=== PATIENT | female | born 1960 | race Caucasian/White ===

== ENCOUNTER → 2016-07-20 | Outpatient (REF) | payer BC ==
[2016-07-20 12:58] LABS: LUTEINIZING HORMONE 51.2 mIU/mL
[2016-07-20 12:59] LABS: FOLLICLE STIMULATING HORMONE 113.6 mIU/mL
== END ==
LOC: M LAB REF 12:19
PROVIDERS: ATTEND Nurse Practitioner Family
DX: N91.2 Amenorrhea, unspecified (principal)

== ENCOUNTER 2016-10-09 14:36 | Emergency (ER) | payer BC ==
[~2016-10-09] VITALS: Ht 162.6 cm; Wt 65.4 kg
[2016-10-09] MEDS ORDERED: BYST5TAB2 PO (14:48)
[2016-10-09] MEDS ORDERED: CIPR-249 PO (16:00)
[2016-10-09] MEDS ORDERED: PYRI1TAB5 PO (16:00)
[2016-10-09 16:09] VITALS: BP 126/93
== END 2016-10-09 16:17 | disposition home or self-care (01) ==
LOC: M ED 14:36
DX: N39.0 Urinary tract infection, site not specified (principal)

== ENCOUNTER → 2019-01-07 | Outpatient (CLI) | payer BC ==
[~2019-01-07] MED LIST: BYST5TAB2 PO; CIPR-249 PO; PYRI1TAB5 PO
--- NOTE | 2019-01-07 14:24 | REP ---
Left foot four views: There is an intra-articular fracture at the base of the second digit proximal phalange. There is no dislocation. Mineralization and joint spaces are otherwise unremarkable. There are no foreign bodies. No calcifications. Impression: Intra-articular fracture at the base of the second digit proximal phalange Electronically Signed by Ignacio Milian MD 01/07/2019 02:15 P
== END ==
LOC: M WUC 11:36
PROVIDERS: ATTEND Nurse Practitioner Family
DX: M79.672 Pain in left foot (principal)

== ENCOUNTER → 2019-03-23 | Outpatient (REF) | payer BC | LOC: M LAB REF 13:28 | PROVIDERS: ATTEND Nurse Practitioner Family | DX: Z11.59 Encounter for screening for other viral diseases (principal) ==

== ENCOUNTER → 2019-06-29 | Outpatient (REF) | payer BC ==
[2019-07-02 00:07] LABS: Lyme Disease IgG Ab 18 kDa Ban Present (.); Lyme Disease IgG Ab 23 kDa Ban Present (.); Lyme Disease IgG Ab 28 kDa Ban Absent (.); Lyme Disease IgG Ab 30 kDa Ban Absent (.); Lyme Disease IgG Ab 39 kDa Ban Absent (.); Lyme Disease IgG Ab 41 kDa Ban Absent (.); Lyme Disease IgG Ab 45 kDa Ban Absent (.); Lyme Disease IgG Ab 58 kDa Ban Absent (.); Lyme Disease IgG Ab 66 kDa Ban Absent (.); Lyme Disease IgG Ab 93 kDa Ban Present (.); Lyme Disease IgG West Blot Int Negative (.); Lyme Disease IgG/IgM Antibodie <0.91 ISR (0.00-0.90); Lyme Disease IgM Ab 23 kDa Ban Absent (.); Lyme Disease IgM Ab 39 kDa Ban Absent (.); Lyme Disease IgM Ab 41 kDa Ban Absent (.); Lyme Disease IgM Ab Quantitati 1.17 index (0.00-0.79); Lyme Disease IgM West Blot Int Negative (.)
== END ==
LOC: M LAB REF 16:44
PROVIDERS: ATTEND Registered Nurse
DX: M13.0 Polyarthritis, unspecified (principal)

== ENCOUNTER → 2020-05-03 | Outpatient (REF) | payer BC ==
[2020-05-03 14:23] LABS: BASO % 0.5 % (0.0-1.0); EOS % 0.7 % (0.0-3.0); HEMOGLOBIN 12.7 g/dl (12.0-15.5); LYMPH # 1.7 10^3/uL (1.5-5.0); LYMPH % 40.6 % (24.0-44.0); MEAN CORPUSCULAR HEMOGLOBIN 29.6 pg (27.0-33.0); MEAN CORPUSCULAR HGB CONC 31.8 g/dl (32.0-36.5); MEAN CORPUSCULAR VOLUME 93.2 fl (80.0-96.0); MONO # 0.3 10^3/uL (0.0-0.8); MONO % 6.2 % (0.0-5.0); NEUTROPHILS # 2.2 10^3/uL (1.5-8.5); NEUTROPHILS % 51.5 % (36.0-66.0); PLATELET COUNT, AUTOMATED 261 10^3/uL (150-450); RED BLOOD COUNT 4.29 10^6/uL (4.00-5.40); WHITE BLOOD COUNT 4.2 10^3/uL (4.0-10.0)
[2020-05-03 15:05] LABS: ERYTHROCYTE SEDIMENTATION RATE 5 mm/hr (0-30)
[2020-05-03 15:24] LABS: C REACTIVE PROTEIN QUANTITATIV < 0.30 MG/DL (0.00-0.30); CPK CREATINE PHOSPHOKINASE 102 U/L (26-192); FREE T4 0.77 NG/DL (0.76-1.46)
[2020-05-03 15:27] LABS: VITAMIN B12 LEVEL 336 PG/ML
[2020-05-03 15:30] LABS: FOLATE 9.7 NG/ML
[2020-05-05 14:12] LABS: Lyme Disease IgG Ab 18 kDa Ban Absent (.); Lyme Disease IgG Ab 23 kDa Ban Present (.); Lyme Disease IgG Ab 28 kDa Ban Absent (.); Lyme Disease IgG Ab 30 kDa Ban Absent (.); Lyme Disease IgG Ab 39 kDa Ban Absent (.); Lyme Disease IgG Ab 41 kDa Ban Absent (.); Lyme Disease IgG Ab 45 kDa Ban Absent (.); Lyme Disease IgG Ab 58 kDa Ban Absent (.); Lyme Disease IgG Ab 66 kDa Ban Absent (.); Lyme Disease IgG Ab 93 kDa Ban Present (.); Lyme Disease IgG West Blot Int Negative (.); Lyme Disease IgG/IgM Antibodie <0.91 ISR (0.00-0.90); Lyme Disease IgM Ab 23 kDa Ban Absent (.); Lyme Disease IgM Ab 39 kDa Ban Absent (.); Lyme Disease IgM Ab 41 kDa Ban Absent (.); Lyme Disease IgM Ab Quantitati 1.22 index (0.00-0.79); Lyme Disease IgM West Blot Int Negative (.)
== END ==
LOC: M SFHCPLAZ 10:51
PROVIDERS: ATTEND Internal Medicine Infectious Disease
DX: A69.20 Lyme disease, unspecified (principal); R53.83 Other fatigue

== ENCOUNTER → 2020-06-05 | Outpatient (CLI) | payer BC ==
[~2020-06-05] MED LIST changes: +ESTR62CR VG; +LISI10TA22 PO
== END ==
LOC: M LABSMTC 10:46
PROVIDERS: ATTEND Anesthesiology
DX: Z01.812 Encounter for preprocedural laboratory examination (principal); Z20.822 Contact with and (suspected) exposure to COVID-19

== ENCOUNTER 2020-06-10 10:12 | Day surgery (SDC) | payer BC ==
[~2020-06-10] VITALS: Ht 162.6 cm; Wt 59.4 kg
[~2020-06-10 10:12] MED LIST changes: +NS 1,000 ML IV ONE
[2020-06-10] MEDS ORDERED: propofoL 200 MG/20 ML VIAL As Ordered ONE ×3 (12:08→12:29)
[2020-06-10] MEDS ORDERED: LIDOCAINE 2% 100MG/5ML SDV (FOR ANES.) As Ordered ONE (12:08)
--- NOTE | 2020-06-10 12:28 | ROOR ---
Patient Name: Frances Severino Procedure Date: 06/10/2020 12:05 PM Date of : 1960 Age: 59 [facility]: [facility] Gender: Female Note Status: Finalized Procedure: Total Colonoscopy to Cecum Indications: Screening for colorectal malignant neoplasm Providers: Octavio Oleary MD Referring MD: Isma Paige MD Requesting Provider: Medicines: Monitored Anesthesia Care Complications: No immediate complications. Procedure: Pre-Anesthesia Assessment: - The heart rate, respiratory rate, oxygen saturations, blood pressure, adequacy of pulmonary ventilation, and response to care were monitored throughout the procedure. The Colonoscope was introduced through the anus and advanced to the cecum, identified by appendiceal orifice and ileocecal valve. The colonoscopy was performed without difficulty. The patient tolerated the procedure well. The quality of the bowel preparation was excellent. Findings: The perianal and digital rectal examinations were normal. Scattered small-mouthed diverticula were found in the recto-sigmoid colon, sigmoid colon and descending colon. The exam was otherwise without abnormality on direct and retroflexion views. Impression: - Diverticulosis in the recto-sigmoid colon, in the sigmoid colon and in the descending colon. - The examination was otherwise normal on direct and retroflexion views. - No specimens collected. - The exam was otherwise normal to the cecum. Recommendation: - Patient has a contact number available for emergencies. The signs and symptoms of potential delayed complications were discussed with the patient. Return to normal activities tomorrow. Written discharge instructions were provided to the patient. - High fiber diet. - Discharge patient to home. - Continue present medications. - Repeat colonoscopy in 10 years for screening purposes. - Return to referring physician. - The findings and recommendations were discussed with the patient. Procedure Code(s): --- Professional --- 05420, Colonoscopy, flexible; diagnostic, including collection of specimen(s) by brushing or washing, when performed (separate procedure) Diagnosis Code(s): --- Professional --- Z12.11, Encounter for screening for malignant neoplasm of colon K57.30, Diverticulosis of large intestine without perforation or abscess without bleeding CPT copyright 2019 [employer]. All rights reserved. The codes documented in this report are preliminary and upon railways assistant review may be revised to meet current compliance requirements. Octavio Oleary MD Octavio Oleary MD 06/10/2020 12:28:21 PM Electronically signed by Octavio Oleary MD Number of Addenda: 0 Note Initiated On: 06/10/2020 12:05 PM Estimated Blood Loss: Estimated blood loss: none.
[2020-06-10 12:50] VITALS: BP 128/87
== END 2020-06-10 13:01 | disposition home or self-care (01) ==
LOC: M OPP 10:12
PROVIDERS: ATTEND Internal Medicine Gastroenterology
DX: Z12.11 Encounter for screening for malignant neoplasm of colon (principal); K57.30 Diverticulosis of large intestine without perforation or abscess without bleeding; I10 Essential (primary) hypertension; Z88.1 Allergy status to other antibiotic agents; Z91.018 Allergy to other foods; Z79.899 Other long term (current) drug therapy

== ENCOUNTER → 2022-02-08 | Outpatient (REF) | payer BC ==
[~2022-02-08] MED LIST changes: -NS 1,000 ML IV ONE
== END ==
LOC: M LABDRAWC 11:00
PROVIDERS: ATTEND Registered Nurse
DX: A69.20 Lyme disease, unspecified (principal)

== ENCOUNTER → 2022-10-12 | Outpatient (CLI) | payer BC | LOC: M WHC 08:21 → MERGE 08:21 | PROVIDERS: ATTEND Nurse Practitioner Family | DX: Z13.820 Encounter for screening for osteoporosis (principal); M81.0 Age-related osteoporosis without current pathological fracture ==

== ENCOUNTER → 2022-10-12 | Outpatient (CLI) | payer BC | LOC: M WHC 08:43 → MERGE 08:43 | PROVIDERS: ATTEND Internal Medicine | DX: Z12.31 Encounter for screening mammogram for malignant neoplasm of breast (principal) ==

== ENCOUNTER 2023-02-02 09:45 | Observation (INO) | payer BC ==
[~2023-02-02] VITALS: Ht 162.6 cm; Wt 59.2 kg
[2023-02-02] VITALS (16 sets, daily range): BP systolic 137–200; BP diastolic 83–122; TEMP 97.7–98.8; O2SAT 96–100
[2023-02-02] MEDS: ASPIRIN 81MG ENTERIC TABLET PO SCH (09:00)
[2023-02-02] MEDS: ATORVASTATIN 20 MG TAB PO SCH (09:00)
[~2023-02-02 09:45] MED LIST changes: +ASPIRIN 81MG ENTERIC TABLET PO SCH
[2023-02-02 10:53] LABS: BASO % 0.3 % (0.0-1.0); EOS # 0.1 10^3/uL (0.0-0.5); EOS % 1.5 % (0.0-3.0); HEMATOCRIT 41.7 % (36.0-47.0); LYMPH # 1.6 10^3/uL (1.5-5.0); LYMPH % 40.1 % (24.0-44.0); MEAN CORPUSCULAR HEMOGLOBIN 30.4 pg (27.0-33.0); MEAN CORPUSCULAR HGB CONC 33.6 g/dl (32.0-36.5); MEAN CORPUSCULAR VOLUME 90.7 fl (80.0-96.0); MONO # 0.3 10^3/uL (0.0-0.8); MONO % 6.7 % (2.0-8.0); NEUTROPHILS % 51.1 % (36.0-66.0); PLATELET COUNT, AUTOMATED 257 10^3/uL (150-450); WHITE BLOOD COUNT 3.9 10^3/uL (4.0-10.0)
[2023-02-02] MEDS ORDERED: MAG SULF 1GM/100ML (MAG RUN) 1 GM in IV 1 EA IV ONE (11:00)
[2023-02-02 11:06] LABS: INR 0.94; PROTHROMBIN TIME 12.3 SECONDS (12.5-14.5)
[2023-02-02 11:07] LABS: PARTIAL THROMBOPLASTIN TIME 29.4 SECONDS (24.8-34.2)
[2023-02-02 11:20] LABS: BLOOD UREA NITROGEN 13 MG/DL (9-23); CALCIUM LEVEL 9.2 MG/DL (8.3-10.6); CARBON DIOXIDE LEVEL 29 MMOL/L (20-31); CHLORIDE LEVEL 103 MMOL/L (98-107); CREATININE FOR GFR 0.77 MG/DL (0.55-1.30); GLOMERULAR FILTRATION RATE > 60.0 (>45); GLUCOSE, FASTING 120 MG/DL (74-106); MAGNESIUM LEVEL 2.1 MG/DL (1.8-2.4); POTASSIUM SERUM 4.2 MMOL/L (3.5-5.1); SODIUM LEVEL 140 MMOL/L (136-145)
[2023-02-02] MEDS ORDERED: MED REC IN PROGRESS XX SCH (12:10)
[2023-02-02] MEDS ORDERED: ISOVUE-370 76% 100ML VIAL As Ordered ONE (12:44)
[2023-02-02] MEDS ORDERED: HOME MED LIST COMPLETE! XX SCH (12:50)
[2023-02-02] MEDS ORDERED: MOM 30ML SUSPENSION UDC PO PRN (13:25)
[2023-02-02] MEDS ORDERED: MAALOX 30 ML SUSP *UDC PO PRN (13:25)
[2023-02-02 14:17] LABS: CHOLESTEROL LEVEL 207 MG/DL (<200); CHOLESTEROL RISK RATIO 2.63 (<5); HDL CHOLESTEROL 78.6 MG/DL (>40); LDL CHOLESTEROL 112.6 MG/DL (<100); NON-HDL-C 128.4 MG/DL; TOTAL 25(OH) VITAMIN D 23.7 NG/ML (20.0-100.0); TRIGLYCERIDES LEVEL 79 MG/DL (<150); VITAMIN B12 LEVEL 310 PG/ML (211-911)
[2023-02-02 14:56] LABS: HEMOGLOBIN A1c 4.9 % (4.0-6.0)
[2023-02-02] MEDS ORDERED: GLUCOSE 4GM CHEW TABLET PO PRN (16:05)
[2023-02-02] MEDS ORDERED: GLUCAGON INJ 1MG VIAL SC PRN (16:05)
[2023-02-02] MEDS ORDERED: DEXTROSE 50% 50ML SYRINGE IV PRN (16:05)
[2023-02-02] MEDS ORDERED: INSULIN LISPRO (NovoLOG) PER UNIT SC SCH ×2 (17:30→21:00)
[2023-02-02] MEDS ORDERED: ENOXAPARIN 40MG/0.4ML SYRINGE (J1650 PER 10MG) SC SCH (21:00)
[2023-02-03] MEDS: ACETAMINOPHEN TAB 650MG DOSE (2X325MG) PO PRN ×2 (02:59→13:02)
[2023-02-03 06:00] VITALS: BP 135/91; TEMP 97.5; O2SAT 95
[2023-02-03 07:57] VITALS: BP 139/97
[2023-02-03] MEDS: ATORVASTATIN 20 MG TAB PO SCH (08:00)
[2023-02-03] MEDS: ASPIRIN 81MG ENTERIC TABLET PO SCH (08:00)
[2023-02-03] MEDS ORDERED: CLOPIDOGREL 75 MG TAB PO SCH (09:00)
[2023-02-03 14:00] VITALS: BP 136/94; TEMP 97.9; O2SAT 98
[2023-02-03] MEDS ORDERED: ASPI81TAEC PO (16:47)
[2023-02-03] MEDS ORDERED: ATOR1TAB21 PO (16:47)
== END 2023-02-03 17:30 | disposition home or self-care (01) ==
LOC: M ED 09:45 → M ED INP 13:25 → EDUNIT# 13:25 → ENRESERV 15:26 → M MSPAV 16:22
PROVIDERS: ADMIT Student in an Organized Health Care Education/Training Program; ATTEND Student in an Organized Health Care Education/Training Program
DX: R20.2 Paresthesia of skin (principal); H53.122 Transient visual loss, left eye; I10 Essential (primary) hypertension; E78.5 Hyperlipidemia, unspecified; E11.9 Type 2 diabetes mellitus without complications; K21.9 Gastro-esophageal reflux disease without esophagitis; G43.909 Migraine, unspecified, not intractable, without status migrainosus; I67.82 Cerebral ischemia; R29.701 NIHSS score 1; Z82.49 Family history of ischemic heart disease and other diseases of the circulatory system; Z88.1 Allergy status to other antibiotic agents; Z88.5 Allergy status to narcotic agent; Z91.040 Latex allergy status; Z91.018 Allergy to other foods; Z79.899 Other long term (current) drug therapy; Z79.82 Long term (current) use of aspirin
CPT/HCPCS: 70450; 70496; 70498; 70551; 80048; 80061; 82306; 82607; 83036; 83735; 85025; 85610; 85730; 86618; 87635; 93005; 93041; 93306; 94760; 99285; Q9967

== ENCOUNTER → 2023-06-14 | Outpatient (CLI) | payer BC ==
[~2023-06-14] MED LIST changes: +ASPI81TAEC PO; -ASPIRIN 81MG ENTERIC TABLET PO SCH; +ATOR1TAB21 PO
[2023-06-14 13:38] LABS: C REACTIVE PROTEIN QUANTITATIV < 0.40 MG/DL (<1.0)
[2023-06-14 13:40] LABS: RHEUMATOID FACTOR QUANT 6.2 IU/ML (<14)
== END ==
LOC: M LAB 12:05
PROVIDERS: ATTEND Orthopaedic Surgery
DX: M47.892 Other spondylosis, cervical region (principal)

== ENCOUNTER → 2023-09-04 | Outpatient (CLI) | payer BC | LOC: M WUC 09:05 | PROVIDERS: ATTEND Nurse Practitioner Family | DX: M41.86 Other forms of scoliosis, lumbar region (principal); M54.9 Dorsalgia, unspecified ==

== ENCOUNTER → 2024-02-17 | Outpatient (CLI) | payer BC ==
[~2024-02-17] MED LIST changes: +BYST1TAB2 PO; -BYST5TAB2 PO; +E-Z-GAS II EFFERVESCENT PACKET (SODIUM BICARB./CITRIC ACID/SIMETHICONE) As Ordered ONE; +E-Z-HD 98% w/w 340GM SUSP BTL As Ordered ONE; +E-Z-PAQUE 96% w/w SUSP 176GM BTL As Ordered ONE
== END ==
LOC: M RAD 08:14
PROVIDERS: ATTEND Nurse Practitioner Family
DX: R10.13 Epigastric pain (principal)